=== PATIENT | male | born 1975 | race Caucasian/White ===

== ENCOUNTER 2018-04-17 14:24 | Emergency (ER) | payer OTHER ==
[~2018-04-17] VITALS: Ht 170.2 cm; Wt 137.0 kg
[2018-04-17 14:33] VITALS: BP 225/144; PULSE 86; RESP 18; TEMP 98.8; O2SAT 97
[2018-04-17] MEDS ORDERED: LISI20TA PO (14:48)
[2018-04-17] MEDS ORDERED: OMEP20TA93 PO (14:48)
--- NOTE | 2018-04-17 15:39 | PD ---
HPI Chief Complaint: Injury Time Seen by Provider: 15:02 Travel History International Travel<30 days: No Contact w/Intl Traveler<30days: No Traveled to known affect area: No History of Present Illness HPI 42-year-old male presents emergency department evaluation of right hand pain after a crush injury that occurred at work today. 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 Patient states that he was able to eventually remove his hand with some assistance. He has a difficult time making a fist because of the pain and swelling. Denies numbness or tingling. Says that the processing plate that he used also has a burning element and sustained a few mae, notable to the thumb. He has no other complaints today. Patient says that he has a history of hypertension but does not take medication and has not taken medication in 2 years. PFSH Past Medical History GERD: Yes Hypertension: Yes (out of meds x 3 yrs) Tetanus Vaccination: < 5 Years Influenza Vaccination: No Past Surgical History Abdominal Surgery: Yes (bilat groin hernia repair) Tympanostomy Tube: Yes (placed in both ears as a child) Social History Alcohol Use: Yes (occas. beer) Tobacco Use: Yes (1 -3/4 ppd of cigs) Substance Use: No Allergies-Medications (Allergen,Severity, Reaction): Coded Allergies: No Known Allergies (Unverified , 04/17/18) Reported Meds & Prescriptions Reported Meds & Active Scripts Active Keflex (Cephalexin) 500 Mg Cap 500 Mg PO Q12H 7 Days Reported Lisinopril-Hctz Unknown Strength Tab Unknown Dose PO DAILY Omeprazole 20 Mg Tab 20 Mg PO DAILY Review of Systems Except as stated in HPI: all other systems reviewed are Neg Physical Exam Narrative GENERAL: Well-nourished, well-developed patient, in NAD SKIN: Focused skin assessment warm/dry. No rashes or lesions. HEAD: Normocephalic. Atraumatic. EYES: No scleral icterus. No injection or drainage. THROAT: No pharyngeal injection, exudates, or tonsillar hypertrophy. Airway is patent. NECK: Supple, trachea midline. No JVD or lymphadenopathy. No meningismus. CARDIOVASCULAR: Regular rate and rhythm without murmurs, gallops, or rubs. RESPIRATORY: Breath sounds equal bilaterally. No accessory muscle use. No wheezes, rales, or rhonchi MUSCULOSKELETAL: No cyanosis, or edema. Right hand-edema noted from the MCPs and distally. Multiple abrasions noted to the area. a linear second degree burn measuring 5mm burn is located on the ulnar aspect of the thumb. TTP to fingers although no deformities noted. full range of motion of fingers. Neurovascular intact. BACK: Nontender without obvious deformity. No CVA tenderness. Data Data Last Documented VS Vital Signs Date Time Temp Pulse Resp B/P (MAP) Pulse Ox O2 Delivery O2 Flow Rate FiO2 04/17/18 16:06 79 16 197/105 (135) 04/17/18 14:43 97 Room Air 04/17/18 14:33 98.8 Orders Orders Hand, Complete ([id number]) (04/17/18 ) Wound Care (04/17/18 15:54) Silver Sulfadia 1% Crm (50 Gm) (Silvaden (04/17/18 16:00) Ed Discharge Order (04/17/18 16:18) MDM Medical Decision Making Medical Screen Exam Complete: Yes Emergency Medical Condition: Yes Differential Diagnosis Right hand fracture, crush injury, contusion Narrative Course 42-year-old male presents emergency department evaluation of right hand pain after a crush injury that occurred at work today. 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 Patient states that he was able to eventually remove his hand with some assistance. He has a difficult time making a fist because of the pain and swelling. Denies numbness or tingling. His pain is mild to moderate in severity. Says that the processing plate that he used also has a burning element and sustained a few mae, notable to the thumb. He has no other complaints today. Patient says that he has a history of hypertension but does not take medication and has not taken medication in 2 years. Vital signs demonstrate elevated blood pressure. I did discuss this with the patient. Says that she moved down from [place] a couple of years ago and has not established with a primary care physician. I do not believe it was a good idea to restart his medication as he likely has been elevated for a significant amount of time. He had no complaints related to his high blood pressure today. Right hand x-ray without acute process. History and physical consistent with a crush injury of his fingers. Patient is neurovascularly intact. I advised him to use extreme caution and have low threshold for returning as this is a crush injury. Advised him on the concerns of developing compartment syndrome. Keflex for prophylactic antibiotics as patient does have a burn and multiple abrasions. Wound care performed. Patient is discharged advised to follow-up with his primary care physician within 2-3 days. [facility] information given. Diagnosis Primary Impression: Crushing injury of right hand, initial encounter Additional Impressions: Abrasion Elevated blood pressure reading Referrals: [facility] Primary Care Physician Departure Forms: Tests/Procedures, Work Release Enter return to work date: April 21, 2018 Additional Instructions: Use ice or heat for symptom relief. If no contraindications, you may use Tylenol or Motrin per package instructions for your pain. Elevate the joint above the heart to reduce swelling. You may use compression with Jorden wrap or similar to reduce swelling. If symptoms persist or worsen, return to the emergency department. Follow up with your primary care physician within 2 days. Monitor for significantly increased pain, swelling, hardness of the hand. I highly recommend he follow-up with the primary care physician for evaluation of her high blood pressure. Scripts Cephalexin (Keflex) 500 Mg Cap 500 MG PO Q12H for Infection for 7 Days, #14 CAP 0 Refills Prov: Avelino Funez MD 04/17/18 Disposition: 01 DISCHARGE HOME Condition: Stable Sherin Corbett April 17, 2018 15:39
--- NOTE | 2018-04-17 15:42 | RADRPT ---
EXAM DATE: 04/17/2018 3:36 PM EDT AGE/SEX: 42 years / Male INDICATIONS: Anterior right hand abrasions. Patient's right hand was stuck in a bagging machine tod ay. CLINICAL DATA: This is the patient's initial encounter. Patient reports that signs and symptoms have been present for 1 day and indicates a pain score of 6/10. MEDICAL/SURGICAL HISTORY: None. None. COMPARISON: No prior [facility] exams available for comparison. FINDINGS: Bony structures are intact and in normal alignment. Osseous density is normal. Soft tiss ues are unremarkable. No radiopaque foreign bodies seen. CONCLUSION: No acute bony findings Electronically signed by: Avelino Trinh MD 04/17/2018 3:41 PM EDT
[2018-04-17] MEDS ORDERED: SILVER SULFADIAZINE 1% CR 50 GM JAR TOPICAL ONE (16:00)
[2018-04-17] MEDS ORDERED: CEPH-460 PO (16:00)
[2018-04-17 16:06] VITALS: BP 197/105
== END 2018-04-17 16:25 | disposition home or self-care (01) ==
LOC: PHEFT 14:24
DX: S67.21XA Crushing injury of right hand, initial encounter (principal); W23.0XXA Caught, crushed, jammed, or pinched between moving objects, initial encounter; K21.9 Gastro-esophageal reflux disease without esophagitis; I10 Essential (primary) hypertension; F17.200 Nicotine dependence, unspecified, uncomplicated; T23.2 Burn of second degree of wrist and hand
CPT/HCPCS: 16020; 73130